=== PATIENT | female | born 1960 | race Caucasian/White ===

== ENCOUNTER → 2019-09-05 | Outpatient (CLI) | payer OTHER | LOC: MC.RAD 13:09 | DX: Z12.31 Encounter for screening mammogram for malignant neoplasm of breast (principal) ==

== ENCOUNTER → 2022-09-29 | Outpatient (CLI) | payer OTHER | LOC: MC.RAD 15:36 | DX: Z12.31 Encounter for screening mammogram for malignant neoplasm of breast (principal) ==